=== PATIENT | female | born 1970 | race Caucasian/White ===

== ENCOUNTER 2016-09-14 18:32 | Emergency (ER) | payer MEDICAID ==
[2016-09-14] MEDS ORDERED: HYDROCHLOROTHIA25 MG PO (19:05)
[2016-09-14] MEDS ORDERED: ATIVAN1 MG PO (19:05)
[2016-09-14] MEDS ORDERED: NOR5 PO (19:05)
[2016-09-14] MEDS ORDERED: LISINOPRIL40 MG PO (19:05)
[2016-09-14] MEDS ORDERED: AUG500 PO (19:06)
[2016-09-14 20:12] VITALS: BP 152/93
== END 2016-09-14 20:34 | disposition home or self-care (01) ==
LOC: ED 18:32
DX: F41.9 Anxiety disorder, unspecified (principal); H60.91 Unspecified otitis externa, right ear; I10 Essential (primary) hypertension
CPT/HCPCS: J2060